=== PATIENT | female | born 1980 | race Caucasian/White ===

== ENCOUNTER 2023-08-16 10:10 | Emergency (ER) | payer MEDICAID, OTHER ==
[~2023-08-16] VITALS: Ht 149.9 cm; Wt 56.0 kg
[2023-08-16 10:20] VITALS: TEMP 97.9; O2SAT 98
[2023-08-16 10:47] LABS: BASOPHILS % 0.5 % (0.0-2.0); CHLORIDE 108 mEq/L (98-107); DIFFERENTIAL COMMENT 0; EOSINOPHILS % 2.3 % (0.0-5.0); HEMOGLOBIN. 13.2 g/dL (12.0-16.0); LYMPHOCYTES % 30.9 % (20.0-50.0); MEAN CORPUSCULAR HEMOGLOBIN 26.4 pg (28.0-32.0); MEAN CORPUSCULAR HGB CONC 33.9 g/dL (31.0-37.0); MEAN CORPUSCULAR VOLUME 77.9 fL (81.0-99.0); MEAN PLATELET VOLUME 8.4 fl (7.4-10.4); MONOCYTES % 8.8 % (2.0-8.0); NEUTROPHILS % 57.5 % (40.0-76.0); PLATELET 297 x1000/uL (130-400); POTASSIUM 3.3 mEq/L (3.5-5.1); RED CELL DISTRIBUTION WIDTH 14.8 % (11.6-14.6); SODIUM 140 mEq/L (136-145); WHITE BLOOD COUNT 6.5 x1000/uL (4.5-11.0)
[2023-08-16 10:48] LABS: CALCIUM 8.5 mg/dL (8.7-10.4); CARBON DIOXIDE 26 mEq/L (21-32)
[2023-08-16 10:53] LABS: CREATININE 0.7 mg/dL (0.6-1.0); GLUCOSE 100 mg/dL (70-105)
[2023-08-16 10:55] LABS: UREA NITROGEN BLOOD < 5 mg/dL (9-23)
[2023-08-16 10:56] LABS: HCG SCREEN POSITIVE
[2023-08-16 15:11] VITALS: BP 146/87; PULSE 70; RESP 16
== END 2023-08-16 15:13 | disposition home or self-care (01) ==
LOC: ER 10:10
DX: O20.0 Threatened abortion (principal); Z3A.01 Less than 8 weeks gestation of pregnancy
CPT/HCPCS: 36415; 76801; 80048; 84702; 84703; 85025; 86850; 86900; 99284